=== PATIENT | male | born 1940 | race Caucasian/White ===

== ENCOUNTER 2022-06-29 14:31 | Inpatient (IN) | payer MEDICARE ==
[~2022-06-29] VITALS: Ht 172.7 cm; Wt 101.6 kg
[2022-06-29 15:17] LABS: HEMOGLOBIN 14.8 gm/dl (14.0-17.5); RED BLOOD COUNT 4.88 M/UL (4.20-5.50); WHITE BLOOD COUNT 8.5 K/UL (4.5-11.0)
[2022-06-30 04:49] LABS: HEMOGLOBIN 13.5 gm/dl (14.0-17.5); RED BLOOD COUNT 4.41 M/UL (4.20-5.50); WHITE BLOOD COUNT 8.8 K/UL (4.5-11.0)
[2022-06-30] MEDS ORDERED: ALBUTEROL2.5 MG/3 M INH (11:00)
[2022-06-30] MEDS ORDERED: MECLIZINE HCL25 MG PO (11:00)
[2022-06-30] MEDS ORDERED: PROVENTIL HFA6.7 GM INH (11:01)
[2022-06-30] MEDS ORDERED: ATORVASTATIN CA10 MG PO (11:01)
[2022-06-30] MEDS ORDERED: FLONASE 0.05% N16 GM (11:02)
[2022-06-30] MEDS ORDERED: SYMBICORT 80-10.2 GM INH (11:02)
[2022-06-30] MEDS ORDERED: LEVEMIR FL100 UNIT/1 SQ (11:03)
[2022-06-30] MEDS ORDERED: ALLOPURINOL300 MG PO (11:04)
[2022-06-30] MEDS ORDERED: ARTHRITIS PAIN150 GM TP (11:04)
[2022-06-30] MEDS ORDERED: ELIQUIS5 MG PO (11:05)
[2022-06-30] MEDS ORDERED: DOXAZOSIN MESYLA2 MG PO (11:05)
[2022-06-30] MEDS ORDERED: AMLODIPINE BESY10 MG PO (11:05)
[2022-06-30] MEDS ORDERED: HYDROXYZINE PAM25 MG PO (11:06)
[2022-06-30] MEDS ORDERED: GLIPIZIDE10 MG PO (11:06)
[2022-06-30] MEDS ORDERED: LEVOCETIRIZINE D5 MG PO (11:07)
[2022-06-30] MEDS ORDERED: LISINOPRIL20 MG PO (11:07)
[2022-06-30] MEDS ORDERED: PROTONIX40 MG PO (11:09)
[2022-06-30] MEDS ORDERED: OMEGA-3 ACID ETH1 GM PO (11:09)
[2022-06-30] MEDS ORDERED: HUMALOG100 UNIT/3 SC (11:10)
[2022-06-30] MEDS ORDERED: ATORVASTATIN CA20 MG PO (11:16)
[2022-07-01 02:19] LABS: HEMOGLOBIN 14.7 gm/dl (14.0-17.5); WHITE BLOOD COUNT 6.8 K/UL (4.5-11.0)
[2022-07-01 02:23] LABS: RED BLOOD COUNT 4.87 M/UL (4.20-5.50)
[2022-07-01] MEDS ORDERED: CATAPRES 0.1MG0.1 MG PO (12:28)
== END 2022-07-01 13:36 | disposition home or self-care (01) | DRG 640 ==
LOC: ER1 14:31 → CDU 18:58 → PROG CARE 18:58 → CCU 21:42 → PROG CARE 06-30 20:14
PROVIDERS: Emergency Medicine; Physician Assistant Medical; ADMIT Internal Medicine
DX: E87.5 Hyperkalemia (principal); N17.0 Acute kidney failure with tubular necrosis; E87.2 Acidosis; E11.9 Type 2 diabetes mellitus without complications; J44.9 Chronic obstructive pulmonary disease, unspecified; I10 Essential (primary) hypertension; J60 Coalworker's pneumoconiosis; Z85.46 Personal history of malignant neoplasm of prostate; Z82.49 Family history of ischemic heart disease and other diseases of the circulatory system; Z91.041 Radiographic dye allergy status; Z91.040 Latex allergy status; Z91.013 Allergy to seafood
CPT/HCPCS: 36415; 36600; 70450; 71045; 80048; 80053; 81001; 82009; 82436; 82550; 82553; 82570; 82803; 82962; 83036; 83735; 84100; 84133; 84156; 84300; 84439; 84443; 84484; 85025; 89050; 93005; 94640; 94760; 96374; 96375; 96376; 97116; 97116-GP-CQ; 97162; 97166; 97530-GP-CQ; 99285; J0610; J3475; J7070; Q0177; U0002